=== PATIENT | male | born 1970 | race Two or more races ===

== ENCOUNTER → 2021-10-03 | Day surgery (SDC) | payer MEDICAID ==
[2021-09-28 11:52] LABS: Basophils # (auto) 0 10 ^3/uL (0-0.2); Basophils % (auto) 0.3 % (0.0-2.0); Eosinophils # (auto) 0.1 10 ^3/uL (0-0.8); Eosinophils % (auto) 1.1 % (0.0-7.0); Hematocrit 47.5 % (41.0-53.0); Hemoglobin 16.5 g/dL (13.5-17.5); Lymphocytes % (auto) 44.8 % (10.0-50.0); Mean Corpuscular Hemoglobin 32.3 pg (28.0-32.0); Mean Corpuscular Hgb Conc. 34.7 g/dL (32.0-36.0); Mean Corpuscular Volume 93.1 fL (80.0-100.0); Monocytes # (auto) 0.5 10 ^3/uL (0-1.3); Monocytes % (auto) 5.4 % (0.0-12.0); Neutrophils # (auto) 4.3 10 ^3/uL (1.6-8.6); Neutrophils % (auto) 48.4 % (37.0-80.0); Nucleated Red Blood Cells % 0.1 %; Red Blood Cells 5.11 10^6/uL (4.5-5.90); Red Cell Distribution Width 13.1 % (11.8-14.3); White Blood Cell 8.9 10^3/uL (4.4-10.8)
[2021-09-28 12:00] LABS: Potassium 4.1 mmol/L (3.5-5.1)
[2021-09-28 12:07] LABS: Albumin 4.3 g/dL (3.4-5.0); BUN/Creatinine Ratio 14.7; Bilirubin, Total 0.5 mg/dL (0.2-1.0); Calcium 9.3 mg/dL (8.5-10.1); Total Protein 7.6 g/dL (6.4-8.2)
[~2021-10-03] VITALS: Ht 170.2 cm; Wt 75.7 kg
[~2021-10-03] MED LIST: ASPI-543 PO; ATOR10TA52 PO; CHOL20007 PO; LIDOCAINE VISCOUS 2% 15ML UD ONE; METF-370 PO
[2021-10-03] MEDS: fentaNYL CITRATE 100 MCG/2 ML VL ONE ×5 (14:50→15:23)
[2021-10-03] MEDS: MIDAZOLAM HCL 5 MG/ML-1ML VIAL ONE ×4 (14:50→15:10)
[2021-10-03] MEDS: diphenhdrAMINE HCL 50 MG/1 ML VL ONE ×2 (14:50→14:58)
[2021-10-03 16:10] VITALS: BP 109/64
== END | disposition home or self-care (01) ==
LOC: GI 13:07
PROVIDERS: ATTEND Internal Medicine Gastroenterology
DX: R10.13 Epigastric pain (principal); R19.4 Change in bowel habit; D12.3 Benign neoplasm of transverse colon; D12.4 Benign neoplasm of descending colon; D12.8 Benign neoplasm of rectum; K64.8 Other hemorrhoids; K22.10 Ulcer of esophagus without bleeding; K44.9 Diaphragmatic hernia without obstruction or gangrene; K29.80 Duodenitis without bleeding; K29.50 Unspecified chronic gastritis without bleeding; F17.200 Nicotine dependence, unspecified, uncomplicated; E11.9 Type 2 diabetes mellitus without complications; Z98.890 Other specified postprocedural states; Z83.3 Family history of diabetes mellitus; Z79.899 Other long term (current) drug therapy; Z20.822 Contact with and (suspected) exposure to COVID-19
CPT/HCPCS: 36415; 43239; 45380; 45385; 80053; 82962; 85025; 88305; 88342; J1200; J2250; J3010; J7030; U0003; 99152; 99153